=== PATIENT | male | born 1975 | race Caucasian/White ===

== ENCOUNTER 2016-10-11 12:13 | Emergency (ER) | payer MEDICAID, OTHER ==
[2016-10-11 12:25] VITALS: O2SAT 100
[2016-10-11] MEDS ORDERED: Oxymetazoline 0.05% Nasal Spray (30 ml) NS STA (12:46)
--- NOTE | 2016-10-11 13:30 | C.PDOC ---
History Of Present Illness 40 year old male presents to the ED with complaints of multiple episodes of epistaxis with associated dizziness since yesterday morning. Patient states he visited [facility] yesterday but they did not do anything. He was discharged but continued to have about 4 more episodes afterwards with one just prior to arrival. Patient notes taking Aleve the night before the symptoms began and denies any trauma, fever, or headache. Time Seen by Provider: 10/11/16 12:33 Chief Complaint (Nursing): ENT Problem History Per: Patient History/Exam Limitations: None Onset/Duration Of Symptoms: Days (since yesterday ) Current Symptoms Are (Timing): Still Present Symptoms Have Been: Episodic Anticoagulant/Antiplatlet Use?: No Recent Aspirin Use: No Past Medical History Reviewed: Historical Data, Nursing Documentation, Vital Signs Vital Signs: Last Vital Signs Temp 98.0 F 10/11/16 14:09 Pulse 59 L 10/11/16 14:09 Resp 20 10/11/16 14:09 BP 118/77 10/11/16 14:09 Pulse Ox 100 10/11/16 15:00 - Medical History PMH: No Chronic Diseases Family History: States: Unknown Family Hx - Social History Hx Alcohol Use: Yes Hx Substance Use: No - Immunization History Hx Tetanus Toxoid Vaccination: No Hx Influenza Vaccination: No Hx Pneumococcal Vaccination: No Review Of Systems Constitutional: Negative for: Fever, Chills ENT: Positive for: Other (Epistaxis ). Negative for: Nose Pain Cardiovascular: Negative for: Chest Pain Respiratory: Negative for: Cough, Shortness of Breath Gastrointestinal: Negative for: Nausea, Vomiting Physical Exam - Physical Exam Appears: Non-toxic, No Acute Distress Skin: Warm, Dry Head: Atraumatic, Normacephalic Eye(s): bilateral: Normal Inspection, PERRL, EOMI Nose: Normal, No Discharge, No Epistaxis, No Tenderness, No Septal Hematoma, Other (No active bleeding upon examination ) Oral Mucosa: Moist Throat: Normal, No Erythema Neck: Normal ROM Chest: Symmetrical, No Deformity Cardiovascular: Rhythm Regular Respiratory: Normal Breath Sounds, No Wheezing Neurological/Psych: Oriented x3, Normal Speech, Normal Motor, Normal Sensation Gait: Steady ED Course And Treatment - Laboratory Results Result Diagrams: 10/11/16 13:36 Lab Interpretation: Normal O2 Sat by Pulse Oximetry: 100 (room air ) Medical Decision Making Medical Decision Making: Patient with no active bleeding upon evaluation. Labs ordered and reviewed unremarkable. Afrin spray was applied. Patient was to be discharged and then started having left nare bleed. Silver nitrate applied and observed in ED. No more bleeding. Patient stable for discharge. Advise follow up with ENT Disposition Counseled Patient/Family Regarding: Need For Followup - Disposition Referrals: Mathew Rabago MD [Staff Provider] - Disposition: HOME/ ROUTINE Disposition Time: 13:54 Condition: STABLE Additional Instructions: Follow up with your primary medical doctor or clinic in 2-5 days for further evaluation. Use nasal spray once a day for at max 2 days. Return to the emergency department at any time if symptoms persist or worsen. Instructions: Nosebleed (ED) Forms: [facility] ([place]) - POA Present On Arrival: None - Clinical Impression Clinical Impression: Epistaxis - Scribe Statement The provider has reviewed the documentation as recorded by the Scribe Sharita Cerna All medical record entries made by the Scribe were at my direction and personally dictated by me. I have reviewed the chart and agree that the record accurately reflects my personal performance of the history, physical exam, medical decision making, and the department course for this patient. I have also personally directed, reviewed, and agree with the discharge instructions and disposition.
[2016-10-11 13:39] LABS: HEMATOCRIT 43.9 % (35.0-51.0); MEAN CELL VOLUME 85.9 fL (80.0-94.0); MEAN CORPUSCULAR HEMOGLOBIN 28.6 pg (27.0-31.0); MEAN CORPUSCULAR HGB CONC 33.3 g/dL (33.0-37.0); MEAN PLATELET VOLUME 9.2 fL (7.2-11.7); RED CELL DISTRIBUTION WIDTH 14.2 % (11.5-14.5); WHITE BLOOD COUNT 5.6 K/uL (4.8-10.8)
[2016-10-11 14:09] VITALS: BP 118/77; PULSE 59; RESP 20; TEMP 98
[2016-10-11] MEDS ORDERED: Silver Nitrate Topical - Stick TOP ONE (14:27)
== END 2016-10-11 15:14 | disposition home or self-care (01) ==
LOC: C.ER 12:13
DX: R04.0 Epistaxis (principal)